=== PATIENT | female | born 1965 | race Caucasian/White ===

== ENCOUNTER 2024-02-03 15:10 | Inpatient (IN) | payer MEDICAID ==
[~2024-02-03] VITALS: Ht 172.7 cm; Wt 74.3 kg
[2024-02-03 16:51] LABS: BASOPHILS ABSOLUTE AUTO 0.08 K/mm3 (0.00-0.23); BASOPHILS PERCENT AUTO 1 % (0-2); EOSINOPHILS ABSOLUTE AUTO 0.03 K/mm3 (0.00-0.68); EOSINOPHILS PERCENT AUTO 0 % (0-6); Hemoglobin 12.9 g/dL (11.5-16.0); IMMATURE GRAN ABSOLUTE AUTO 0.04 K/mm3 (0.00-0.10); IMMATURE GRAN PERCENT AUTO 0 % (0-1); LYMPHOCYTES ABSOLUTE AUTO 1.82 K/mm3 (0.84-5.20); LYMPHOCYTES PERCENT AUTO 20 % (21-46); MONOCYTES ABSOLUTE AUTO 0.41 K/mm3 (0.16-1.47); MONOCYTES PERCENT AUTO 4 % (4-13); Mean Corpuscular HGB 28.1 pg (26.0-34.0); Mean Corpuscular HGB Conc 32.3 g/dL (31.5-36.5); Mean Corpuscular Volume 87 fL (80-100); Mean Platelet Volume 12.7 fL (9.1-12.4); NEUTROPHILS ABSOLUTE AUTO 6.87 K/mm3 (1.96-9.15); NEUTROPHILS PERCENT AUTO 74 % (41-73); Platelet Count 187 K/mm3 (150-400); RDW Coefficient Variation 16.2 % (11.7-14.2); RDW Standard Deviation 50.4 fL (35.1-46.3); Red Blood Cell Count 4.59 M/mm3 (3.80-5.20); White Blood Cell Count 9.25 K/mm3 (4.00-11.30)
[2024-02-03 17:25] LABS: Albumin, Blood 3.2 g/dL (3.4-5.0); Albumin/Globulin Ratio 0.7 (0.8-1.8); Bilirubin, Total 1.1 mg/dL (0.1-1.0); Bun/Creatinine Ratio 22.2 (12.0-20.0); Calcium, Blood 9.5 mg/dL (8.5-10.1); Creatinine, Blood 1.17 mg/dL (0.40-1.00); Globulin, Blood 4.8 g/dL (2.2-4.0); Potassium, Blood 5.2 mmol/L (3.5-5.5)
[2024-02-03] MEDS ORDERED: Furosemide 10 MG / ML 2ML Vial IV ONE ×2 (18:45→19:15)
[2024-02-03] MEDS ORDERED: FLU VACC TS2024-25(6MOS UP)/PF 45 MCG/0.5 ML SYRINGE IM SCH (19:15)
[2024-02-03] MEDS ORDERED: HydrALAZINE HCl 25 MG Tab PO PRN (19:20)
[2024-02-03] MEDS ORDERED: Nitroglycerin 1 INCH/GM PKT TOP ONE (20:00)
[2024-02-03 21:32] LABS: CORONAVIRUS COVID-19 AG Negative (NEGATIVE); INFLUENZA A AG Negative (NEGATIVE); INFLUENZA B AG Negative (NEGATIVE)
[2024-02-03 22:19] VITALS: BP 143/88
[2024-02-04 04:12] VITALS: BP 115/63
[2024-02-04 06:16] LABS: Bun/Creatinine Ratio 21.1 (12.0-20.0); Calcium, Blood 9.6 mg/dL (8.5-10.1); Creatinine, Blood 1.33 mg/dL (0.40-1.00); Magnesium, Blood 2.1 mg/dL (1.6-2.4); Potassium, Blood 3.8 mmol/L (3.5-5.5)
[2024-02-04 08:19] VITALS: BP 124/81
[2024-02-04] MEDS ORDERED: Heparin Sodium 5000 Units/ML 1ML MDV SC SCH (09:00)
[2024-02-04] MEDS ORDERED: Furosemide 10 MG/ML 4ML Vial IV SCH (09:00)
[2024-02-04 15:17] VITALS: BP 124/89
[2024-02-04] MEDS ORDERED: Carvedilol 6.25 MG Tab PO SCH (17:00)
[2024-02-04 19:33] VITALS: BP 98/63
[2024-02-04] MEDS ORDERED: Sacubitril/Valsartan 24 MG-26 MG Tab PO SCH (21:00)
[2024-02-05] VITALS (9 sets, daily range): BP systolic 73–111; BP diastolic 51–81
[2024-02-05 05:11] LABS: BASOPHILS ABSOLUTE AUTO 0.06 K/mm3 (0.00-0.23); BASOPHILS PERCENT AUTO 1 % (0-2); EOSINOPHILS ABSOLUTE AUTO 0.25 K/mm3 (0.00-0.68); EOSINOPHILS PERCENT AUTO 3 % (0-6); Hematocrit 37.8 % (33.0-51.0); Hemoglobin 12.3 g/dL (11.5-16.0); IMMATURE GRAN ABSOLUTE AUTO 0.02 K/mm3 (0.00-0.10); IMMATURE GRAN PERCENT AUTO 0 % (0-1); LYMPHOCYTES ABSOLUTE AUTO 2.45 K/mm3 (0.84-5.20); LYMPHOCYTES PERCENT AUTO 30 % (21-46); MONOCYTES ABSOLUTE AUTO 0.58 K/mm3 (0.16-1.47); MONOCYTES PERCENT AUTO 7 % (4-13); Mean Corpuscular HGB Conc 32.5 g/dL (31.5-36.5); Mean Corpuscular Volume 86 fL (80-100); Mean Platelet Volume 12.5 fL (9.1-12.4); NEUTROPHILS ABSOLUTE AUTO 4.88 K/mm3 (1.96-9.15); NEUTROPHILS PERCENT AUTO 59 % (41-73); Platelet Count 181 K/mm3 (150-400); RDW Standard Deviation 49.6 fL (35.1-46.3); Red Blood Cell Count 4.39 M/mm3 (3.80-5.20); White Blood Cell Count 8.24 K/mm3 (4.00-11.30)
[2024-02-05 06:01] LABS: Magnesium, Blood 2.2 mg/dL (1.6-2.4)
[2024-02-05 06:08] LABS: Bun/Creatinine Ratio 21.5 (12.0-20.0); Calcium, Blood 9.1 mg/dL (8.5-10.1); Creatinine, Blood 1.58 mg/dL (0.40-1.00); Free Thyroxine 1.37 ng/dL (0.70-1.60); Potassium, Blood 3.6 mmol/L (3.5-5.5); Thyroid Stimulating Hormone 1.89 uIU/mL (0.360-4.800)
[2024-02-05] MEDS ORDERED: Empagliflozin 10 MG TAB PO SCH (09:00)
[2024-02-05] MEDS ORDERED: ENTRESTO 24 MG1 EACH PO ×2 (11:01)
[2024-02-05] MEDS ORDERED: ATOR40TA PO ×2 (11:02)
[2024-02-05] MEDS ORDERED: JARDIANCE10 MG PO ×2 (11:02)
[2024-02-05] MEDS ORDERED: SPIR25 PO ×2 (11:04)
[2024-02-05] MEDS ORDERED: VIT D3-VIT K21 EACH PO ×2 (11:04)
[2024-02-05] MEDS ORDERED: Carvedilol12.5 MG PO ×2 (11:04)
[2024-02-05] MEDS ORDERED: Carvedilol 6.25 MG Tab PO SCH (17:00)
[2024-02-05] MEDS ORDERED: Atorvastatin 40 MG Tab PO SCH (21:00)
[2024-02-06 03:25] VITALS: BP 106/71
[2024-02-06 06:21] LABS: Calcium, Blood 9.4 mg/dL (8.5-10.1); Creatinine, Blood 1.37 mg/dL (0.40-1.00); Potassium, Blood 3.8 mmol/L (3.5-5.5)
[2024-02-06 07:22] VITALS: BP 95/66
[2024-02-06] MEDS ORDERED: Cholecalciferol 1000 Unit Tablet (=25MCG) PO SCH (09:00)
[2024-02-06] MEDS ORDERED: Torsemide 20 MG TAB PO SCH (09:00)
[2024-02-06] MEDS ORDERED: Spironolactone 25 MG Tab PO SCH (09:00)
[2024-02-06] MEDS ORDERED: VITAMIN D5000 UNIT PO ×2 (10:57)
[2024-02-06] MEDS ORDERED: TORSE20 PO ×2 (10:57)
== END 2024-02-06 13:21 | disposition home or self-care (01) | DRG 291 ==
LOC: ER 15:10 → MEDS 15:11
PROVIDERS: Emergency Medicine; Internal Medicine; Nurse Practitioner Acute Care; ADMIT Student in an Organized Health Care Education/Training Program
DX: I13.0 Hypertensive heart and chronic kidney disease with heart failure and stage 1 through stage 4 chronic kidney disease, or unspecified chronic kidney disease (principal); I50.21 Acute systolic (congestive) heart failure; N17.9 Acute kidney failure, unspecified; I47.20 Ventricular tachycardia, unspecified; N18.32 Chronic kidney disease, stage 3b; I42.0 Dilated cardiomyopathy; Z95.810 Presence of automatic (implantable) cardiac defibrillator; Z86.73 Personal history of transient ischemic attack (TIA), and cerebral infarction without residual deficits
CPT/HCPCS: 36415; 71046; 80048; 80053; 83690; 83735; 83880; 84439; 84443; 84484; 85025; 87428-QW; 93005; 93010; 96372; 96374; 96376; 99285-25; A9270; C8929; G0378; J1644; J1940; Q9957

== ENCOUNTER → 2024-02-03 | Outpatient (CLI) | payer MEDICAID ==
[~2024-02-03] MED LIST: ATOR40TA PO; Carvedilol12.5 MG PO; ENTRESTO 24 MG1 EACH PO; JARDIANCE10 MG PO; SPIR25 PO; TORSE20 PO; VIT D3-VIT K21 EACH PO; VITAMIN D5000 UNIT PO
[2024-02-03 14:08] LABS: BASOPHILS ABSOLUTE AUTO 0.05 K/mm3 (0.00-0.23); BASOPHILS PERCENT AUTO 1 % (0-2); EOSINOPHILS ABSOLUTE AUTO 0.03 K/mm3 (0.00-0.68); EOSINOPHILS PERCENT AUTO 0 % (0-6); Hematocrit 41.6 % (33.0-51.0); Hemoglobin 13.2 g/dL (11.5-16.0); IMMATURE GRAN ABSOLUTE AUTO 0.03 K/mm3 (0.00-0.10); IMMATURE GRAN PERCENT AUTO 0 % (0-1); LYMPHOCYTES ABSOLUTE AUTO 1.37 K/mm3 (0.84-5.20); LYMPHOCYTES PERCENT AUTO 14 % (21-46); MONOCYTES PERCENT AUTO 5 % (4-13); Mean Corpuscular HGB 27.8 pg (26.0-34.0); Mean Corpuscular HGB Conc 31.7 g/dL (31.5-36.5); Mean Corpuscular Volume 88 fL (80-100); Mean Platelet Volume 12.7 fL (9.1-12.4); NEUTROPHILS ABSOLUTE AUTO 7.76 K/mm3 (1.96-9.15); NEUTROPHILS PERCENT AUTO 80 % (41-73); Platelet Count 216 K/mm3 (150-400); RDW Standard Deviation 50.1 fL (35.1-46.3); Red Blood Cell Count 4.75 M/mm3 (3.80-5.20); White Blood Cell Count 9.74 K/mm3 (4.00-11.30)
[2024-02-03 14:21] LABS: Albumin, Blood 3.4 g/dL (3.4-5.0); Albumin/Globulin Ratio 0.7 (0.8-1.8); Bilirubin, Total 1.1 mg/dL (0.1-1.0); Bun/Creatinine Ratio 17.6 (12.0-20.0); Calcium, Blood 9.2 mg/dL (8.5-10.1); Creatinine, Blood 1.53 mg/dL (0.40-1.00); Globulin, Blood 4.8 g/dL (2.2-4.0); Potassium, Blood 4.6 mmol/L (3.5-5.5); Total Protein, Blood 8.2 g/dL (6.4-8.2)
== END ==
LOC: LAB SHORT 14:03 → LAB 14:03
PROVIDERS: Physician Assistant
DX: R06.02 Shortness of breath (principal)
CPT/HCPCS: 80053; 83880; 84484; 85025

== ENCOUNTER 2024-06-21 16:05 | Emergency (ER) | payer MEDICAID ==
[~2024-06-21] VITALS: Ht 152.4 cm; Wt 72.6 kg
[2024-06-21] MEDS ORDERED: FAMO20 PO (16:50)
[2024-06-21] MEDS ORDERED: IBUP600 PO (18:00)
[2024-06-21] MEDS ORDERED: ACET500 PO (18:00)
[2024-06-21] MEDS ORDERED: NS 500 ML IV SCH (18:30)
[2024-06-21 18:49] LABS: Source, Urine Clean Catch
[2024-06-21 18:54] LABS: Bilirubin, Urine Neg (Neg); Color, Urine Amber (P-Yellow); Glucose Qualitative, Urine Neg (Neg); Ketones, Urine Neg (Neg); Nitrite, Urine Neg (Neg)
[2024-06-21 19:29] LABS: Appearance, Urine Clear (Clear)
[2024-06-21 19:36] LABS: Blood, Urine 5+ (Neg); Leukocyte Esterase, Urine 3+ (Neg); Protein, Urine 4+ (Neg); Specific Gravity, Urine 1.015 (1.003-1.022); Urobilinogen, Urine 2+ (Normal)
[2024-06-21 19:40] LABS: Amorphous Light (0-Heavy); Bacteria Many /hpf; Red Blood Cells, Urine 50-100 /hpf (0-2); Squamous Epithelial Cells Few /hpf (Few); Triple Phosphate Crystals Rare /hpf; White Blood Cells, Urine 50-100 /hpf (0-5)
[2024-06-21 19:51] LABS: BASOPHILS ABSOLUTE AUTO 0.06 K/mm3 (0.00-0.23); BASOPHILS PERCENT AUTO 0 % (0-2); EOSINOPHILS ABSOLUTE AUTO 0.05 K/mm3 (0.00-0.68); EOSINOPHILS PERCENT AUTO 0 % (0-6); Hematocrit 41.7 % (33.0-51.0); Hemoglobin 12.5 g/dL (11.5-16.0); IMMATURE GRAN ABSOLUTE AUTO 0.11 K/mm3 (0.00-0.10); IMMATURE GRAN PERCENT AUTO 1 % (0-1); LYMPHOCYTES PERCENT AUTO 6 % (21-46); MONOCYTES ABSOLUTE AUTO 0.94 K/mm3 (0.16-1.47); MONOCYTES PERCENT AUTO 7 % (4-13); Mean Corpuscular HGB 26.9 pg (26.0-34.0); Mean Corpuscular Volume 90 fL (80-100); Mean Platelet Volume 12.3 fL (9.1-12.4); NEUTROPHILS ABSOLUTE AUTO 11.91 K/mm3 (1.96-9.15); NEUTROPHILS PERCENT AUTO 85 % (41-73); Platelet Count 184 K/mm3 (150-400); RDW Coefficient Variation 16.7 % (11.7-14.2); RDW Standard Deviation 54.4 fL (35.1-46.3); Red Blood Cell Count 4.64 M/mm3 (3.80-5.20); White Blood Cell Count 13.97 K/mm3 (4.00-11.30)
[2024-06-21 20:18] LABS: Magnesium, Blood 2.3 mg/dL (1.6-2.4)
[2024-06-21] MEDS ORDERED: CefTRIAXone Sodium 1,000 MG in NS 100 ML IV ONE (20:25)
[2024-06-21 20:40] LABS: Bun/Creatinine Ratio 24.8 (12.0-20.0); Calcium, Blood 8.8 mg/dL (8.5-10.1); Creatinine, Blood 1.01 mg/dL (0.40-1.00); Free Thyroxine 1.56 ng/dL (0.70-1.60); Thyroid Stimulating Hormone 1.89 uIU/mL (0.360-4.800)
[2024-06-21] MEDS ORDERED: CEPH500 PO (22:19)
[2024-06-23] MEDS ORDERED: VITAMIN D350 MC3 PO (18:12)
[2024-06-23] MEDS ORDERED: SENNA LAXATIVE8.6 MG PO (18:12)
[2024-06-30] MEDS ORDERED: FURO20 PO (11:40)
[2024-06-30] MEDS ORDERED: METO25 PO (11:41)
[2024-06-30] MEDS ORDERED: MICONAZOLE NIT130 GM TOP (11:42)
[2024-06-30] MEDS ORDERED: NYSTATIN100000 U10 PO (11:55)
[2024-06-30] MEDS ORDERED: Critic-Aid142 GM TOP (11:57)
== END 2024-06-21 22:43 | disposition home or self-care (01) ==
LOC: ER 16:05
PROVIDERS: Emergency Medicine
DX: N39.0 Urinary tract infection, site not specified (principal); R45.1 Restlessness and agitation; I11.0 Hypertensive heart disease with heart failure; I50.9 Heart failure, unspecified; I25.2 Old myocardial infarction; E11.9 Type 2 diabetes mellitus without complications; Z86.73 Personal history of transient ischemic attack (TIA), and cerebral infarction without residual deficits; Z79.84 Long term (current) use of oral hypoglycemic drugs; Z79.899 Other long term (current) drug therapy
CPT/HCPCS: 51701; 70450; 71045; 80048; 81001; 82607; 83735; 84439; 84443; 85025; 93005; 93010; 96361; 96365; 99284-25; J0696; J7030